=== PATIENT | female | born 1950 | race African-American/Black ===

== ENCOUNTER 2016-08-01 01:15 | Emergency (ER) | payer MEDICAID ==
[~2016-08-01] VITALS: Ht 175.3 cm; Wt 81.6 kg
[~2016-08-01 01:15] MED LIST: ALBU18HF2 IH; BECL8.7A5 IH; BENA1TAB18 PO; LORA10TA7 PO
--- NOTE | 2016-08-01 01:41 | NUR ---
PT AMBULATORY TO ER BED 7 C/O BILATYERAL LEG SWELLING X 4 HOURS WITH BILATERAL KNEE PAIN, PT DENIES TRAUMA OR INJURY. PT AOX4 RR EVEN AND UNLABORED. NO SOB NOTED. NAD NTOED. NO NVD AT THIS TIME. PT NOT DIAPHORETIC. PT GOWNED AND PLACED ON MONITOR WAITING FOR MD MARTINEZ.
[2016-08-01] MEDS ORDERED: ASPIRIN 81 MG TAB.CHEW PO ONE (02:00)
[2016-08-01] MEDS ORDERED: ASPIRIN 81 MG TAB.CHEW ONE (02:04)
--- NOTE | 2016-08-01 02:09 | NUR ---
XRAY AT BEDSIDE FOR CXR
[2016-08-01 02:18] LABS: BASOPHILS % (AUTO) 0.8 % (0.0-2.0); EOSINOPHILS # (AUTO) 0.3 /CMM (0.0-0.7); EOSINOPHILS % (AUTO) 6.8 % (0.0-6.0); HEMATOCRIT 35 % (33-45); HEMOGLOBIN 11.7 g/dL (11.5-14.8); LYMPHOCYTES # (AUTO) 1.1 /CMM (0.8-4.8); LYMPHOCYTES % (AUTO) 27.1 % (20.0-44.0); MEAN CORPUSCULAR HEMOGLOBIN 29 PG (26.0-33.0); MEAN CORPUSCULAR HGB CONC 33 g/dl (31.0-36.0); MEAN CORPUSCULAR VOLUME 87 fL (82-100); MONOCYTES # (AUTO) 0.7 /CMM (0.1-1.30); MONOCYTES % (AUTO) 17.3 % (2.0-12.0); NEUTROPHILS # (AUTO) 1.9 /CMM (1.8-8.9); PLATELET COUNT (AUTO) 243 /CMM (150-450); RDW COEFFICIENT OF VARIATION 12.6 (11.5-15.0); RED BLOOD CELL COUNT(AUTO) 4.03 MIL/uL (4.0-5.2)
[2016-08-01 02:26] LABS: CALCIUM, SERUM 8.9 mg/dL (8.5-10.1); CARBON DIOXIDE 29 mmol/L (21-32); CHLORIDE 106 mmol/L (98-107); CREATININE 0.9 mg/dL (0.6-1.3); GFR 76 mL/min (>60); GLUCOSE 89 mg/dL (74-106); POTASSIUM 3.8 mmol/L (3.5-5.1); SODIUM SERUM 145 mmol/L (136-145); UREA NITROGEN, BLOOD 25 mg/dL (7-18)
[2016-08-01 02:29] LABS: PROTHROMBIN TIME 10.7 SECS (9.5-12.7)
[2016-08-01 02:33] LABS: TROPONIN I < 0.017 ng/mL (0.00-0.056)
[2016-08-01 02:40] LABS: B-TYPE NATRIURETIC PEPTIDE 46 PG/ML (0-125)
--- NOTE | 2016-08-01 02:45 | NUR ---
URINE COLLECTED. CALLED LAB FOR [facility] [employer].
[2016-08-01 02:59] LABS: APPEARANCE,URINE CLEAR (CLEAR); BILIRUBIN,URINE NEGATIVE (NEGATIVE); BLOOD, URINE NEGATIVE Ery/uL (NEGATIVE); COLOR,URINE YELLOW (YELLOW); KETONES,URINE NEGATIVE (NEGATIVE); LEUKOCYTE ESTERASE ,URINE NEGATIVE (NEGATIVE); NITRITE, URINE NEGATIVE (NEGATIVE); PH,URINE 5.5 (5.0-8.0); PROTEIN,URINE NEGATIVE (NEGATIVE); UGLUCOSE NEGATIVE (NEGATIVE); UROBILINOGEN,URINE 0.2 EU/dL (0.2)
[2016-08-01] MEDS ORDERED: ALBUTEROL FS 2.5 MG/3 ML VIAL.NEB NEB ONE (03:00)
[2016-08-01] MEDS ORDERED: ALBUTEROL FS 2.5 MG/3 ML VIAL.NEB ONE (03:14)
--- NOTE | 2016-08-01 03:17 | NUR ---
RT AT BEDSIDE FOR BREATHING TX.
[2016-08-01 04:08] LABS: EOSINOPHILS % (MANUAL) 4 % (0-4); LYMPHOCYTES % (MANUAL) 21 % (16-48); MONOCYTES % (MANUAL) 22 % (0-11.0); NEUTROPHILS % (MANUAL) 53 (42-76); PLATELET ESTIMATE ADEQUATE
--- NOTE | 2016-08-01 04:09 | NUR ---
IV removed. Catheter intact and site benign. Pressure and 4x4 applied to site. No bleeding noted. Patient discharged to home in stable condition. Written and verbal after care instructions given. Patient verbalizes understanding of instruction. ambulatory with a steady gait
[2016-08-01 04:11] VITALS: BP 110/70
== END 2016-08-01 04:11 | disposition home or self-care (01) ==
LOC: ER 01:19
DX: Z00.8 Encounter for other general examination (principal); I10 Essential (primary) hypertension; J45.909 Unspecified asthma, uncomplicated; R79.1 Abnormal coagulation profile; Z79.82 Long term (current) use of aspirin
CPT/HCPCS: 36415; 71010-TC; 80048-TC; 81000-TC; 83880; 84484-TC; 85025-TC; 85730-TC; A4606; Z7610